=== PATIENT | female | born 1950 | race African-American/Black ===

== ENCOUNTER 2018-03-24 14:30 | Emergency (ER) | payer MEDICARE, OTHER ==
[~2018-03-24] VITALS: Ht 170.2 cm; Wt 119.3 kg
[~2018-03-24 14:30] MED LIST: COREG6.25 MG ORAL; DOC-Q-LACE100 M1 ORAL; IBUPROFEN600 M1 PO; LEVOTHYROXINE100 MCG ORAL; LEVOTHYROXINE150 MCG ORAL; METFORMIN HCL500 M1 ORAL; MULTIVITAMINS1 EAC2 ORAL; NITROSTAT0.4 M1 SL; OMEPRAZOLE20 M2 ORAL; Potassium PO; ROBAXIN500 MG PO; SIMVASTATIN20 MG ORAL; ZESTRIL10 M1 ORAL; [UNRECOGNIZED DRUG - OTHER] PO; ibuprofen PO
[2018-03-24] MEDS ORDERED: ASPIRIN325 MG ORAL (14:47)
[2018-03-24] MEDS ORDERED: FUROSEMIDE20 M1 ORAL (14:47)
[2018-03-24] MEDS ORDERED: SYNTHROID100 MCG ORAL (14:47)
[2018-03-24] MEDS ORDERED: POTASSIUM CHLO10 ME2 PO (14:47)
[2018-03-24] MEDS ORDERED: NORCO 5-325 TA1 EACH ORAL (14:47)
[2018-03-24] MEDS ORDERED: HYDRALAZINE HCL25 M1 ORAL ×2 (14:47→17:40)
[2018-03-24] MEDS ORDERED: GABAPENTIN300 MG ORAL ×2 (14:47→17:40)
[2018-03-24] MEDS ORDERED: PRAVASTATIN SOD40 M1 ORAL (14:47)
[2018-03-24] MEDS ORDERED: LOSARTAN POTASS50 MG ORAL ×2 (14:47→17:40)
[2018-03-24] MEDS ORDERED: ISOSORBIDE DINI30 MG ORAL ×2 (14:47→17:40)
--- NOTE | 2018-03-24 14:48 | Emergency Room Report ---
History of Present Illness General Chief Complaint: Vaginal Source: Patient Present Illness HPI Patient is a 67-year-old female presented after increased vaginal bleeding for approximately one week. Patient recently been noted to have increased bleeding. She reportedly had prior history of fibroid uterus. Patient states that she also has maker as well as prior history of bronchitis. Patient denies being a smoker. She has not currently followed by [facility]. States she has prior history of hypothyroidism. Allergies: Coded Allergies: No Known Allergies (Unverified , 06/22/13) Patient History Past Medical History: see triage record Last Menstrual Period: Unk Nursing Documentation-PMH Hx Cardiac Problems: Yes - Left Chest Pacemaker Hx Hypertension: Yes Hx Pacemaker: Yes Hx Asthma: Yes Hx Diabetes: Yes Hx Cancer: No Hx Gastrointestinal Problems: No Hx Neurological Problems: No Review of Systems All Other Systems: negative except mentioned in HPI Physical Exam Vital Signs Date Time Temp Pulse Resp B/P (MAP) Pulse Ox O2 Delivery O2 Flow Rate FiO2 03/24/18 14:37 Room Air Sp02 EP Interpretation: reviewed, normal General Appearance: normal inspection, well appearing, no apparent distress, alert, GCS 15, obese Head: atraumatic ENT: normal ENT inspection, hearing grossly normal, normal voice Neck: normal inspection, full range of motion, supple, no bony tend Respiratory: normal inspection, lungs clear, normal breath sounds, no respiratory distress, no retraction, no wheezing Cardiovascular #1: regular rate, rhythm, no edema Gastrointestinal: normal inspection, normal bowel sounds, non tender, soft, no guarding, no hernia Genitourinary: no CVA tenderness, os closed, other - dark clots in vault, mild to moderate bleeding Musculoskeletal: normal inspection, back normal, normal range of motion Neurologic: normal inspection, alert, oriented x3, responsive, drop wire hanger III-XII nml as tested, speech normal Psychiatric: normal inspection, judgement/insight normal, mood/affect normal Skin: normal inspection, normal color, no rash Medical Decision Making Diagnostic Impression: Primary Impression: Vaginal bleeding Additional Impression: Fibroid ER Course Patient presented for abdominal pain. Differential diagnoses included ischemic bowel, appendicitis, perforated viscus, abdominal aortic aneurysm, inferior myocardial infarction, viral gastroenteritis. Because of complexity of patient' s case laboratory testing and imaging studies were ordered.Dr. Adrien Fonseca was contacted for capitated hospital transfer. The laboratory study showed adequate hemoglobin and normal coagulation. The patient was discussed with Dr.Manuel Fonseca for capitated facility transfer. Labs Test 03/24/18 15:21 03/24/18 15:40 White Blood Count 5.0 K/UL (4.8-10.8) Red Blood Count 3.95 M/UL (4.20-5.40) Hemoglobin 11.8 G/DL (12.0-16.0) Hematocrit 34.8 % (37.0-47.0) Mean Corpuscular Volume 88 FL (80-99) Mean Corpuscular Hemoglobin 29.8 PG (27.0-31.0) Mean Corpuscular Hemoglobin Concent 33.9 G/DL (32.0-36.0) Red Cell Distribution Width 14.3 % (11.6-14.8) Platelet Count 244 K/UL (150-450) Mean Platelet Volume 7.6 FL (6.5-10.1) Neutrophils (%) (Auto) 48.7 % (45.0-75.0) Lymphocytes (%) (Auto) 37.8 % (20.0-45.0) Monocytes (%) (Auto) 6.7 % (1.0-10.0) Eosinophils (%) (Auto) 4.1 % (0.0-3.0) Basophils (%) (Auto) 2.6 % (0.0-2.0) Prothrombin Time 10.9 SEC (9.30-11.50) Prothromb Time International Ratio 1.0 (0.9-1.1) Activated Partial Thromboplast Time 26 SEC (23-33) Sodium Level 138 MMOL/L (136-145) Potassium Level 3.8 MMOL/L (3.5-5.1) Chloride Level 101 MMOL/L (98-107) Carbon Dioxide Level 26 MMOL/L (21-32) Anion Gap 11 mmol/L (5-15) Blood Urea Nitrogen 22 mg/dL (7-18) Creatinine 1.3 MG/DL (0.55-1.30) Estimat Glomerular Filtration Rate 49.2 mL/min (>60) Glucose Level 237 MG/DL (74-106) Calcium Level 10.2 MG/DL (8.5-10.1) Total Bilirubin 0.7 MG/DL (0.2-1.0) Aspartate Amino Transf (AST/SGOT) 48 U/L (15-37) Alanine Aminotransferase (ALT/SGPT) 55 U/L (12-78) Alkaline Phosphatase 60 U/L (46-116) Total Protein 8.8 G/DL (6.4-8.2) Albumin 4.1 G/DL (3.4-5.0) Globulin 4.7 g/dL Albumin/Globulin Ratio 0.9 (1.0-2.7) Lipase 277 U/L (73-393) Urine Color Red Urine Appearance Slightly cloudy Urine pH 5 (4.5-8.0) Urine Specific [place] 1.025 (1.005-1.035) Urine Protein 3+ (NEGATIVE) Urine Glucose (UA) Negative (NEGATIVE) Urine Ketones 1+ (NEGATIVE) Urine Occult Blood 5+ (NEGATIVE) Urine Nitrite Negative (NEGATIVE) Urine Bilirubin Negative (NEGATIVE) Urine Urobilinogen Normal MG/DL (0.0-1.0) Urine Leukocyte Esterase 2+ (NEGATIVE) Urine RBC 30-40 /HPF (0 - 2) Urine WBC 5-10 /HPF (0 - 2) Urine Squamous Epithelial Cells Few /LPF (NONE/OCC) Urine Bacteria Few /HPF (NONE) EKG Diagnostic Results Rate: normal Rhythm: NSR ST Segments: no acute changes Last Vital Signs Date Time Temp Pulse Resp B/P (MAP) Pulse Ox O2 Delivery O2 Flow Rate FiO2 03/24/18 14:37 Room Air Status: unchanged Disposition: ADMITTED INPATIENT Condition: Killian Martinez March 24, 2018 14:48
[2018-03-24 15:49] LABS: ANION GAP 11 mmol/L (5-15); BLOOD UREA NITROGEN 22 mg/dL (7-18); CALCIUM 10.2 MG/DL (8.5-10.1); CARBON DIOXIDE 26 MMOL/L (21-32); CHLORIDE 101 MMOL/L (98-107); CREATININE 1.3 MG/DL (0.55-1.30); POTASSIUM 3.8 MMOL/L (3.5-5.1); SODIUM 138 MMOL/L (136-145)
[2018-03-24 15:53] LABS: ALANINE AMINOTRANSFERASE 55 U/L (12-78); ALBUMIN 4.1 G/DL (3.4-5.0); ALBUMIN/GLOBULIN RATIO 0.9 (1.0-2.7); ALKALINE PHOSPHATASE 60 U/L (46-116); ASPARTATE AMINO TRANSFERASE 48 U/L (15-37); BILIRUBIN,TOTAL 0.7 MG/DL (0.2-1.0)
[2018-03-24 15:55] LABS: APPEARANCE,URINE SLIGHTLY CLOUDY; BILIRUBIN, URINE NEGATIVE (NEGATIVE); COLOR,URINE RED; GLUCOSE, URINE (UA) NEGATIVE (NEGATIVE); KETONES,URINE 1+ (NEGATIVE); LEUKOCYTE ESTERASE ,URINE 2+ (NEGATIVE); NITRITE,URINE NEGATIVE (NEGATIVE); PH,URINE 5 (4.5-8.0); PROTEIN,URINE 3+ (NEGATIVE); UROBILINOGEN,URINE NORMAL MG/DL (0.0-1.0)
[2018-03-24 15:58] LABS: BASOPHILS % (AUTO) 2.6 % (0.0-2.0); EOSINOPHILS % (AUTO) 4.1 % (0.0-3.0); HEMATOCRIT 34.8 % (37.0-47.0); HEMOGLOBIN 11.8 G/DL (12.0-16.0); LYMPHOCYTES % (AUTO) 37.8 % (20.0-45.0); MEAN CORPUSCULAR VOLUME 88 FL (80-99); MONOCYTES % (AUTO) 6.7 % (1.0-10.0); NEUTROPHILS % (AUTO) 48.7 % (45.0-75.0); PLATELET COUNT 244 K/UL (150-450); RED BLOOD COUNT 3.95 M/UL (4.20-5.40); RED CELL DISTRIBUTION WIDTH 14.3 % (11.6-14.8)
[2018-03-24 15:59] VITALS: BP 105/73
[2018-03-24] MEDS ORDERED: TRADJENTA5 MG PO (17:40)
[2018-03-24] MEDS ORDERED: POTASSIUM CHLO10 MEQ ORAL (17:40)
[2018-03-24] MEDS ORDERED: PRAVACHOL40 MG ORAL (17:40)
[2018-03-24] MEDS ORDERED: NITROSTAT0.4 M2 SL (17:40)
[2018-03-24] MEDS ORDERED: CARVEDILOL6.25 MG ORAL (17:40)
[2018-03-24 17:46] VITALS: BP 121/77
[2018-03-24 21:30] VITALS: BP 97/69
--- NOTE | 2018-03-25 15:49 | Cardiology Report ---
APPROVED REPORT EKG Measurement Heart [id number] Normal sinus rhythm Nonspecific intraventricular block T wave abnormality, consider lateral ischemia Abnormal ECG
== END 2018-03-24 21:20 | disposition short-term general hospital (02) ==
LOC: EMR 15:39
DX: N93.9 Abnormal uterine and vaginal bleeding, unspecified (principal); I10 Essential (primary) hypertension; E11.9 Type 2 diabetes mellitus without complications; Z95.0 Presence of cardiac pacemaker; J45.909 Unspecified asthma, uncomplicated
CPT/HCPCS: 36415; 80053; 81003; 83690; 85025; 85610; 85730; 86850; 86900; 86901; 93005; 99284